=== PATIENT | male | born 1970 ===

== ENCOUNTER 2021-03-08 17:25 | Emergency (ER) | payer OTHER, SELFPAY ==
[2021-03-08 17:36] VITALS: BP 106/66; PULSE 82; RESP 16; TEMP 37.1; O2SAT 100; BMI 34.2
--- NOTE | 2021-03-08 17:55 | ED.GENADULT ---
HPI - General Adult General Chief complaint: Skin/Abscess/Foreign Body Stated complaint: rash Time Seen by Provider: 03/08/21 17:46 Source: patient Mode of arrival: ambulatory Limitations: no limitations History of Present Illness HPI narrative: 50-year-old male who presents emergency department for evaluation of possible poison torie. 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 He states that 2 days prior developed a rash on his hands, arms, face lower back and buttocks. He states that the rash is very pruritic. He denied associated symptoms such as fever, chills, chest pain, shortness of breath, dyspnea on exertion. He states he has had poison torie in the past and this feels similar to his past episodes of poison torie. Related Data Allergies Allergy/AdvReac Type Severity Reaction Status Date / Time No Known Allergies Allergy Verified 03/08/21 17:39 Review of Systems Review of Systems: Yes all other systems are reviewed and are negative PMFSH Past Medical History PMFSH Narrative: The patient smokes cigarettes occasionally, he denies alcohol use, he uses intranasal heroin. He states that he snorted 1 bag of heroin yesterday. He does have intranasal Narcan to use at home and he does not want to talk to our health and wellness coach at this time. Medical History (Updated 03/08/21 @ 18:04 by Ubaldo Benton MD) Asthma Social History Social History Smoked in Last 30 Days: No Use of substances other than those prescribed or required for medical reasons: No Advance Directives: No Advance Directives Information Provided: Yes Physical Exam Vital Signs: Vital Signs: Last Vital Signs Temp 98.7 F 03/08/21 17:36 Pulse 82 03/08/21 17:36 Resp 16 03/08/21 17:36 BP 106/66 03/08/21 17:36 Pulse Ox 100 03/08/21 17:36 Body Mass Index 34.2 Const: General: cooperative Orientation/consciousness: oriented to person and oriented to place Limitations: no limitations HENMT: Head: Yes normal to inspection, Yes normocephalic and Yes atraumatic Ears: external ears normal General nose exam: Normal external nose present Face and sinus: Yes normal facial exam Mouth: Normal oral and palatal mucosa present Throat: Yes posterior oropharynx normal Eyes: Periorbital: periorbital findings normal Eyelids: Yes eyelids normal Conjunctivae: conjunctivae normal Sclerae: sclerae normal Corneas: corneas normal Pupils: Equal, round and reactive pupils present Direct Ophthalmoscopy: normal light reflex Neck: Neck: Yes full ROM, Yes no lymphadenopathy, Yes trachea midline and Yes supple Chest: Chest palpation & inspection: normal inspection of the chest and normal palpation of entire chest wall Resp: Effort & Inspection: normal respiratory effort and able to speak in complete sentences Auscultation: clear to auscultation bilaterally Cardio: Rate: regular rate Rhythm: regular rhythm Heart sounds: S1 normal heart sound present, S2 normal heart sound present and no murmurs GI: Inspection: Yes normal to inspection Palpation (GI): Rigid due to palpation : General: Yes no CVA tenderness Back/Spine/Pelvis: Back: no CVA tenderness Skin: Other: Patient has multiple erythematous lesion with slight yellowish packs a day on his arm, hands, chest, face, lower back Neuro: General: oriented to person and oriented to place Cranial nerves: Yes Equal, round and reactive pupils present Cognition (Neuro): normal cognition Extrem: General: Yes full ROM Psych: Appearance: well kempt Mental Status: mental status grossly normal Speech and movement: Normal speech and movement present Affect: normal affect Attitude: cooperative Thought process: Normal thought process present Thought content: Normal thought content present Course Course Course Narrative: 50-year-old male who presents emergency department for evaluation of possible poison torie involving his arms, chest, face and back. The patient's physical findings are consistent with a contact dermatitis/poison torie. The patient was given prednisone 60 mg orally. He was started on prednisone 60 mg once a day for 10 days. He was given verbal and printed instructions on poison torie. The patient did not present for narcotic use disorder however he did admit to using intranasal heroin. I did discuss the safe use of narcotics with the patient, the patient was instructed to make sure that when he uses narcotics there is a sober person with him that has intranasal Narcan that can administer it to him. States that he does have a dose of intranasal Narcan at home and does not need 1 from us at this time. I did offer counseling from our health and wellness coach service however the patient does not want narcotic counseling at this time. He states he is not interested in getting to a detox or maintenance program. Discharge Plan Discharge Clinical Impression: Allergic dermatitis due to poison torie Patient Disposition: Home, Self-Care Instructions: Poison Torie (ED) Additional Instructions: Your rash is consistent with poison torie. Take prednisone 20 mg pills, 3 pills once a day for 7-10 days. Follow-up with your doctor in 2 days. Please return to the emergency department if your symptoms get worse or if you develop any symptoms that are concerning to you.
[2021-03-08] MEDS: predniSONE 20 MG TABLET 60 MG PO (18:17)
== END 2021-03-08 18:21 | disposition home or self-care (01) ==
PROVIDERS: Emergency Provider Emergency Medicine Emergency Medical Services; PCP Nurse Practitioner Family
DX: L23.7 Allergic contact dermatitis due to plants, except food (principal); F17.210 Nicotine dependence, cigarettes, uncomplicated; F15.90 Other stimulant use, unspecified, uncomplicated
CPT/HCPCS: 99283; 99284

== ENCOUNTER 2021-07-22 07:34 | Outpatient (REF) | payer OTHER, SELFPAY ==
[2021-07-22 08:11] LABS: COVID-19 Test Positive (Negative)
== END 2021-07-22 07:35 | disposition home or self-care (01) ==
LOC: HO.LAB 07:34
PROVIDERS: Visit Provider Internal Medicine
DX: Z20.822 Contact with and (suspected) exposure to COVID-19 (principal)
CPT/HCPCS: 36415; 87635; C9803

== ENCOUNTER 2021-08-18 08:03 | Outpatient (REF) | payer OTHER, SELFPAY | END 2021-08-18 08:04 | disposition home or self-care (01) | LOC: HO.LAB 08:03 | PROVIDERS: Visit Provider Internal Medicine | DX: Z20.822 Contact with and (suspected) exposure to COVID-19 (principal) | CPT/HCPCS: U0003; U0005 ==

== ENCOUNTER 2023-12-15 15:40 | Emergency (ER) | payer OTHER, SELFPAY ==
--- NOTE | ~2023-12-15 | XR_ITS ---
EXAMINATION: XR CHEST CLINICAL INFORMATION: Cough. COMPARISON: None available. TECHNIQUE: Frontal view of the chest was obtained. FINDINGS: No significant abnormality is noted involving the heart, lungs, mediastinum, bony thorax or soft tissues. XR/XR chest 1V IMPRESSION: Unremarkable chest examination.
--- NOTE | 2023-12-15 15:41 | ECG_ITS ---
Test Reason : CP Blood Pressure : / mmHG Vent. Rate : 095 BPM Atrial Rate : 095 BPM P-R Int : 150 ms QRS Dur : 086 ms QT Int : 368 ms P-R-T Axes : 065 061 049 degrees QTc Int : 462 ms Normal sinus rhythm Normal ECG When compared with ECG of 16-AUG-2018 06:50, Nonspecific T wave abnormality no longer evident in Inferior leads Referred By: Generic ED Physician Electronically Signed By:AUSTIN LAZAR MD
[2023-12-15 15:43] VITALS: BP 130/77; PULSE 87; RESP 16; TEMP 36.1; O2SAT 98; BMI 33.9
--- NOTE | 2023-12-15 15:51 | ED_ITS ---
HPI - Chest Pain General Chief Complaint: Chest Pain Stated Complaint: Chest pain, 'bad cold' History of Present Illness HPI narrative: Left without completion of treatment Related Data Previous Rx's Medication Instructions Recorded prednisone 20 mg tablet 60 mg (3 x 20 mg) PO DAILY 7 days 03/09/21 #21 tabs Allergies Allergy/AdvReac Type Severity Reaction Status Date / Time No Known Allergies Allergy Verified 03/08/21 17:39 [facility] Past Medical History Medical History (Updated 12/16/23 @ 13:54 by EWELINA Pelletier) Asthma Social History Social History Advance Directives: No Advance Directives Information Provided: No Physical Exam 2 Vital Signs: Vital Signs: Last Vital Signs Temp 97 F 12/15/23 15:43 Pulse 75 12/15/23 16:15 Resp 99 H 12/15/23 16:15 BP 130/77 12/15/23 15:43 Pulse Ox 98 12/15/23 15:43 O2 Del Method Room Air 12/15/23 15:43 BMI result Body Mass Index 33.9 Course Course Course Narrative: RME: 53 yold male presents to the ED for asthma exaceration. patient states coughing, chest pain when cough, and wheezing. Swab, chest xray ordered, EKG and labs ordered Medications Administered Discontinued Medications Generic Name Dose Route Start Last Admin Trade Name Freq PRN Reason Stop Dose Admin Albuterol Sulfate 4 puff 12/15/23 16:10 12/15/23 16:13 Albuterol Sulfate 90 Mcg 8 Gm Inhaler INHALE 12/15/23 16:11 4 puff ONCE ONE Administration Medical Decision Making Lab Data 12/15/23 16:06 12/15/23 16:06 Labs: Lab Results 12/15/23 Range/Units 16:06 WBC 9.0 (4.8-10.8) X10*3/uL RBC 5.29 (4.60-5.80) X10*6/uL Hgb 14.2 (14.0-18.0) g/dl Hct 42.8 (42.0-52.0) % MCV 80.9 (80.0-98.0) fL MCH 26.8 L (27.0-33.0) pg MCHC 33.2 (31.0-36.0) g/dl RDW 12.8 (11.0-16.0) % Plt Count 208 (160-400) X10*3/uL MPV 10.6 (9.4-12.4) fL Immature Gran % (Auto) 0.9 H (0.0-0.4) % Neut % (Auto) 50.0 (45-73) % Lymph % (Auto) 33.0 (20-40) % Saunders % (Auto) 6.2 (2-11) % Eos % (Auto) 9.2 H (0-4) % Baso % (Auto) 0.7 (0-2) % Lymph # (Auto) 3.0 (1.2-4.9) X10*3/uL Saunders # (Auto) 0.6 (0.1-1.2) X10*3/uL Eos # (Auto) 0.8 H (0.0-0.4) X10*3/uL Baso # (Auto) 0.1 (0.0-0.2) X10*3/uL Abs Immat Gran (auto) 0.08 H (0.00-0.03) X10*3/uL Absolute Neuts (auto) 4.5 (2.0-8.3) x10*3/uL Absolute Nucleated RBC 0.000 (0.0-0.012) X10*3/uL Nucleated RBC % (auto) 0.0 (0.0-0.2) /100WBC Sodium 138 (135-145) mmol/L Potassium 3.9 (3.3-5.1) mmol/L Chloride 104 (96-108) mmol/L Carbon Dioxide 24 (22-29) mmol/L Anion Gap 14 (12-20) BUN 15 (9-16) mg/dL Creatinine 0.82 (0.5-1.4) mg/dL Estim Creat Clear Calc 111.2 Estimated GFR > 60 Random Glucose 105 (60-115) mg/dL Calcium 9.6 (8.4-10.2) mg/dL Troponin I High Sens < 2.7 (<3.5-35.0) ng/L B-Natriuretic Peptide < 10 (<100) pg/mL COVID-19 (JUWAN) Negative (Negative) COVID-19 Clin Com See Note Influenza Type A (NIKI) TNP Influenza Type B (NIIK) TNP Influenza A & B Note See Note Discharge Plan Discharge Clinical Impression: Chest pain Patient Disposition: Left W/O Completing Treatment Prescriptions: No Action prednisone 20 mg tablet 60 mg PO DAILY 7 Days Qty: 21 0RF Discharge Date/Time: 12/15/23 22:23
[2023-12-15 16:12] LABS: MANUAL DIFF FLAG NO
[2023-12-15] MEDS: Albuterol Sulfate 90 MCG 8 GM INHALER 4 PUFF INHALE (16:13)
[2023-12-15 16:15] VITALS: PULSE 75; RESP 99; O2SAT 18
[2023-12-15 16:19] LABS: Basophils Absolute Auto 0.1 X10*3/uL (0.0-0.2); Basophils Percent Auto 0.7 % (0-2); Eosinophils Absolute Auto 0.8 X10*3/uL (0.0-0.4); Eosinophils Percent Auto 9.2 % (0-4); Hematocrit 42.8 % (42.0-52.0); Hemoglobin 14.2 g/dl (14.0-18.0); Imm Gran Abs Auto 0.08 X10*3/uL (0.00-0.03); Imm Gran Pct Auto 0.9 % (0.0-0.4); Mean Corpuscular HGB Conc 33.2 g/dl (31.0-36.0); Mean Corpuscular Hemoglobin 26.8 pg (27.0-33.0); Mean Corpuscular Volume 80.9 fL (80.0-98.0); Mean Platelet Volume 10.6 fL (9.4-12.4); Monocytes Absolute Auto 0.6 X10*3/uL (0.1-1.2); Monocytes Percent Auto 6.2 % (2-11); Neutrophils Absolute Auto 4.5 x10*3/uL (2.0-8.3); Platelet Count 208 X10*3/uL (160-400); Red Blood Count 5.29 X10*6/uL (4.60-5.80); Red Cell Distribution Width 12.8 % (11.0-16.0)
[2023-12-15 16:28] LABS: Anion Gap 14 (12-20); Blood Urea Nitrogen 15 mg/dL (9-16); Calcium 9.6 mg/dL (8.4-10.2); Carbon Dioxide 24 mmol/L (22-29); Chloride 104 mmol/L (96-108); Creatinine Clr Calc Pharmacy 111.2; Estimated Glomerular Filt Rate > 60; Glucose Random 105 mg/dL (60-115); Potassium 3.9 mmol/L (3.3-5.1); Sodium 138 mmol/L (135-145)
[2023-12-15 16:32] LABS: COVID-19 Test Negative (Negative); IDNOW Serial# 6674DD1D
[2023-12-15 16:33] LABS: B Type Natriuretic Peptide < 10 pg/mL (<100)
[2023-12-15 16:37] LABS: Troponin-I High Sensitivity < 2.7 ng/L (<3.5-35.0)
[2023-12-15 16:46] LABS: IDNOW Serial# 55D5AD1C
--- NOTE | 2023-12-15 22:22 | PC.NURSE ---
pt called for reassessment x 2 and repeat troponin with no answer
== END 2023-12-15 22:23 | disposition left against medical advice (07) ==
PROVIDERS: Physician Assistant; Emergency Provider Emergency Medicine; PCP Nurse Practitioner Family
DX: R07.9 Chest pain, unspecified (principal); J45.901 Unspecified asthma with (acute) exacerbation; Z11.52 Encounter for screening for COVID-19
CPT/HCPCS: 36415; 71045; 80048; 83880; 84484; 85025; 87635; 93005; 94640; 99284

== ENCOUNTER → 2023-12-15 15:41 | Outpatient (BNV) | payer OTHER, SELFPAY | PROVIDERS: Emergency Provider Emergency Medicine; PCP Nurse Practitioner Family; Visit Provider Internal Medicine Cardiovascular Disease | DX: R07.9 Chest pain, unspecified (principal) | CPT/HCPCS: 93010 ==

== ENCOUNTER 2024-05-26 11:28 | Emergency (ER) | payer OTHER, SELFPAY ==
--- NOTE | ~2024-05-26 | XR_ITS ---
EXAMINATION: XR FINGER, LEFT CLINICAL INFORMATION: Third digit laceration/injury. COMPARISON: None available. TECHNIQUE: Three views of the left long finger. FINDINGS: No acute fracture or subluxation. No unexpected radiopaque foreign bodies. No significant soft tissue abnormality. XR/XR finger LT min 2V IMPRESSION: 1. No acute fracture or malalignment. 2. No unexpected radiopaque foreign bodies.
[2024-05-26 11:52] VITALS: BP 119/70; PULSE 72; RESP 20; TEMP 36.6; O2SAT 98; BMI 34.9
--- NOTE | 2024-05-26 11:52 | ED.UPPEXIN ---
HPI - Extremity Injury (Upper) General Chief Complaint: Wound/Laceration Stated Complaint: Finger Lac Time Seen by Provider: 05/26/24 11:56 Source: patient Mode of arrival: ambulatory Limitations: no limitations History of Present Illness HPI narrative: Patient is a 53 year old male who presents emergency department for evaluation laceration to the left 3rd digit, distal tip along the radial aspect. Reports he was using a streets and buildings decorator in his garden, 1 of the branches broke loose in the tremor came swinging down striking the tip of his finger. He sustained a laceration, reports pain, and inability to flex the finger due to pain. It is held in extension. He reports his last tetanus vaccination was approximately 10-12 years ago Related Data Previous Rx's ?Medication ?Instructions ?Recorded prednisone 20 mg tablet 60 mg (3 x 20 mg) PO DAILY 7 days 03/09/21 #21 tabs Allergies Allergy/AdvReac Type Severity Reaction Status Date / Time No Known Allergies Allergy Verified 05/26/24 11:54 Review of Systems Review of Systems: Yes all other systems are reviewed and are negative [facility] Past Medical History Attestation statement: The following information was validated with the patient. Source: old records reviewed Medical History Asthma Social History Social History Advance Directives: No Advance Directives Information Provided: Yes Do you have a plan to hurt others: No Plan Physical Exam Vital Signs: Vital Signs: Last Vital Signs Temp 97.8 F 05/26/24 13:24 Pulse 72 05/26/24 13:24 Resp 20 05/26/24 13:24 BP 119/70 05/26/24 13:24 Pulse Ox 98 05/26/24 13:24 O2 Del Method Room Air 05/26/24 13:24 BMI result Body Mass Index 34.9 Appearance: Alert.?Oriented to person, place and time. No acute distress.?Normal affect. Neck: Normal inspection.? Neck supple.?? CVS: Heart sounds normal. Normal heart rate and rhythm.? Pulses normal.?? Respiratory: No respiratory distress.? Lung sounds clear to auscultation bilaterally?? Skin: Skin warm and dry.? Normal skin color.? 0.5cm linear laceration to distal tip of left 3rd digit along the radial aspect. No active bleeding..?? Extremities: No obvious deformity to the left 3rd digit, finger held in extension, reports inability to flex due to pain Neuro: Moves all extremities spontaneously. Sensation intact bilaterally. Ambulates with normal steady gait. Course Course Course Narrative: This is an RME performed by Danisha Granado CNP: Additional HPI, ROS, PE not included below will be deferred to primary provider. Patient is a 53-year-old male who presents emergency department for evaluation of accidental laceration to the left 3rd digit distal tip from a streets and buildings decorator. Reports last tetanus vaccination was 10-12 years ago. Denies use of anticoagulants Medical Decision Making Medical Decision Making MDM Narrative: Patient is a 53 old male who presents to the emergency department for evaluation of accidental laceration to the distal tip of the left 3rd digit as per HPI. On examination laceration is superficial, not amenable to repair with suture. Irrigated extensively with saline and Betadine. Tdap was updated. Due to mechanism of injury and pain, XR was obtained to exclude fracture vs. Pain secondary to contusion. Occurs without fracture, ice was applied to the area, increased range of motion flexion. Stable for discharge home Differential Diagnosis Differential Diagnoses: The differential diagnosis associated with the presentation includes (See narrative above) Independent Interpretation I performed an independent interpretation of an: Plain X-Ray (No acute fracture) Radiology Impression Discussion of test interpretation with radiology: I have reviewed the radiologist's reading. Radiologist Impression: XR/XR finger LT min 2V IMPRESSION: 1. No acute fracture or malalignment. 2. No unexpected radiopaque foreign bodies. Prescription Management I considered prescription management with: Pain Medication (Acetaminophen/ibuprofen) Discharge Plan Discharge Clinical Impression: Laceration of finger of left hand Patient Disposition: Home, Self-Care Instructions: Finger Laceration (ED) Additional Instructions: X-ray does not show any evidence of fracture or foreign body. Prescriptions: No Action prednisone 20 mg tablet 60 mg PO DAILY 7 Days Qty: 21 0RF Referrals: Physician,Unknown J [Primary Care Provider] - Interventions: ED Discharge Assessment Last Done: 05/26/24 13:24 Print Language: Setswana
[2024-05-26 13:24] VITALS: BP 119/70; PULSE 72; RESP 20; TEMP 36.6; O2SAT 98
[2024-05-26] MEDS: Diphth,Pertus(ACell),Tet Adult 0.5 ML SYRINGE IM (13:30)
--- NOTE | 2024-05-26 13:33 | PC.NURSE ---
pt medicated per provider order.
== END 2024-05-26 13:33 | disposition home or self-care (01) ==
PROVIDERS: Emergency Provider Emergency Medicine
DX: S61.213A Laceration without foreign body of left middle finger without damage to nail, initial encounter (principal); W27.1XXA Contact with garden tool, initial encounter; Y93.H2 Activity, gardening and landscaping; Y92.017 Garden or yard in single-family (private) house as the place of occurrence of the external cause; Y99.9 Unspecified external cause status
CPT/HCPCS: 73140; 90471; 90715; 99282; 99284

== ENCOUNTER 2024-07-11 13:49 | Emergency (ER) | payer OTHER, SELFPAY ==
--- NOTE | ~2024-07-11 | XR_ITS ---
EXAMINATION: XR FINGER, LEFT CLINICAL INFORMATION: Laceration, assess for fracture COMPARISON: None available. TECHNIQUE: Single view hand with 2 additional views of the left index finger. FINDINGS: The bones and soft tissues are unremarkable aside from some degenerative changes at the first CMC joint as well as at the radiocarpal joint. No fracture or foreign body. Alignment is anatomic. XR/XR finger LT min 2V IMPRESSION: No evidence of an acute injury. Degenerative changes as described above. Electronically signed by: Sudarshan Hill MD 07/11/2024 03:57 PM EDT
[2024-07-11 13:54] VITALS: BP 143/82; PULSE 100; RESP 18; TEMP 36.4; O2SAT 98; BMI 33.5
--- NOTE | 2024-07-11 14:12 | ED_ITS ---
HPI - Wound/Laceration General Chief Complaint: Wound/Laceration Stated Complaint: Finger lac Time Seen by Provider: 07/11/24 14:08 Source: patient Mode of arrival: ambulatory Limitations: no limitations History of Present Illness ED Provider: Carson Gordillo PA-C HPI narrative: 53-year-old male presents the ER for evaluation of a painful, infected wound to his left index finger sustained 3 days ago with hedge trimmers. Patient states he did not seek medical attention at the time. He has had the wound covered in a dressing with worsening pain. He states the wound started to have developed a foul smell yesterday. There is no drainage from it or bleeding. He is not diabetic. His tetanus shot is up-to-date. Onset (ago): day(s) (3) Extremity Location: left: hand (Left index finger) Place: home Patient tetanus UTD: Yes Associated symptoms: pain Treatments prior to arrival: bandage Related Data Previous Rx's ?Medication ?Instructions ?Recorded prednisone 20 mg tablet 60 mg (3 x 20 mg) PO DAILY 7 days 03/09/21 #21 tabs cephalexin 500 mg capsule 500 mg PO Q6H 7 days #28 caps 07/11/24 doxycycline hyclate 100 mg tablet 100 mg PO BID #14 tabs 07/11/24 hydrocortisone 2.5 % topical cream 1 appl topical TID PRN itching #30 07/11/24 grams oxycodone 5 mg tablet 5 mg PO Q8H PRN severe pain (scale 07/11/24 score 7-10) #5 tabs Allergies Allergy/AdvReac Type Severity Reaction Status Date / Time No Known Allergies Allergy Verified 07/11/24 13:56 Review of Systems 2 Review of Systems: Yes all other systems are reviewed and are negative [facility] Past Medical History Medical History Asthma Social History Social History Advance Directives: No Do you have a plan to hurt others: No Plan Physical Exam 2 Vital Signs: Vital Signs: Last Vital Signs Temp 0 F L 07/11/24 16:17 Pulse 70 07/11/24 16:17 Resp 16 07/11/24 16:17 BP 109/72 07/11/24 16:17 Pulse Ox 96 07/11/24 16:17 O2 Del Method Room Air 07/11/24 16:17 BMI result Body Mass Index 33.5 Appearance: Alert. Oriented X3. No acute distress. HEENT: normal inspection CVS: Normal heart rate and rhythm. Pulses normal. Respiratory: No respiratory distress. Skin: Skin warm and dry. Normal skin color. Normal skin turgor. Scattered raised, erythematous papules on the bilateral forearms, abdominal wall and lower extremities consistent with poison yoana dermatitis Extremities: palmar aspect of the left index finger with an irregularly shaped laceration, well epilethialized, white macerated tissue with foul smell. no fluctuance. NV intact. pain w/ flexion at DIP Neuro: Oriented X 3. No motor deficit. No sensory deficit. Medications Administered Discontinued Medications Generic Name Dose Route Start Last Admin Trade Name Freq PRN Reason Stop Dose Admin Acetaminophen 975 mg 07/11/24 14:28 07/11/24 14:41 Acetaminophen 325 Mg Tablet PO 07/11/24 14:29 975 mg ONCE ONE Administration Cephalexin HCl 500 mg 07/11/24 14:28 07/11/24 14:41 Cephalexin 500 Mg Capsule PO 07/11/24 14:29 500 mg ONCE ONE Administration Doxycycline Monohydrate 100 mg 07/11/24 14:28 07/11/24 14:41 Doxycycline Monohydrate 100 Mg Capsule PO 07/11/24 14:29 100 mg ONCE ONE Administration Oxycodone HCl 5 mg 07/11/24 14:28 07/11/24 14:41 Oxycodone Hcl Immed Release 5 Mg Tablet PO 07/11/24 14:29 5 mg ONCE ONE Administration Medical Decision Making Medical Decision Making [facility] Narrative: 53-year-old male presents to the ER for evaluation of a painful, foul-smelling, left index finger laceration from a trimmer sorter sustained 3 days ago. Did not seek medical attention at the time of the injury. Wound has been wrapped and causing more pain. On examination today there appears to be infection. X-ray was done to ensure no bony involvement, this was negative. Will start on double coverage oral antibiotics with Keflex and doxycycline along with pain control. Patient was given strict return precautions. Stable for discharge home, encouraged outpatient follow-up. Differential Diagnosis Differential Diagnoses: The differential diagnosis associated with the presentation includes Tenosynovitis, cellulitis, wound infection, abscess Admission/Observation Consideration of admission/observation: Escalation of care including admission/observation considered Independent Interpretation I performed an independent interpretation of an: Plain X-Ray Interpretation: No acute fracture of the finger Radiology Impression Discussion of test interpretation with radiology: I have reviewed the radiologist's reading. Radiologist Impression: EXAMINATION: XR FINGER, LEFT CLINICAL INFORMATION: Laceration, assess for fracture COMPARISON: None available. TECHNIQUE: Single view hand with 2 additional views of the left index finger. FINDINGS: The bones and soft tissues are unremarkable aside from some degenerative changes at the first CMC joint as well as at the radiocarpal joint. No fracture or foreign body. Alignment is anatomic. XR/XR finger LT min 2V IMPRESSION: No evidence of an acute injury. Degenerative changes as described above. External Record Review External record reviewed: Outpatient record, Prior outpatient labs and Prior outpatient radiology Prescription Management I considered prescription management with: Pain Medication and Antibiotic Critical Care Time Critical Care Time Critical Care Time: No Discharge Plan Discharge Clinical Impression: Infected cut of finger, Poison yoana Patient Disposition: Home, Self-Care Instructions: Wound Infection (DC), Poison Yoana (ED) Additional Instructions: Allow your finger to dry out, the white skin means that is much too moist and it is hindering the healing, contributing to infection. Take the prescribed antibiotics as directed, complete the entire course and do not miss any doses Use the prescribed hydrocortisone cream on your poison yoana 3 times per day. Recommend Motrin and Tylenol around the clock, alternating for pain. Take the prescribed oxycodone as needed for severe pain only. Do not drive after taking this medication. Follow-up with your doctor this week If you develop new or worsening symptoms call 911 or come back to the ER for further evaluation. Prescriptions: New doxycycline hyclate 100 mg tablet 100 mg PO BID Qty: 14 0RF cephalexin 500 mg capsule 500 mg PO Q6H 7 Days Qty: 28 0RF hydrocortisone 2.5 % cream 1 appl topical TID PRN (Reason: itching) Qty: 30 0RF oxycodone 5 mg tablet 5 mg PO Q8H PRN (Reason: severe pain (scale score 7-10)) Qty: 5 0RF Rx Instructions: Partial Fill upon patient request. No Action prednisone 20 mg tablet 60 mg PO DAILY 7 Days Qty: 21 0RF Interventions: ED Discharge Assessment Last Done: 07/11/24 16:17 Discharge Date/Time: 07/11/24 16:18 Print Language: Amharic
[2024-07-11 14:21] VITALS: BP 109/72; PULSE 70; RESP 16; O2SAT 96
[2024-07-11] MEDS: Doxycycline Monohydrate 100 MG CAPSULE PO (14:41)
[2024-07-11] MEDS: Acetaminophen 325 MG TABLET 975 MG PO (14:41)
[2024-07-11] MEDS: cephALEXin 500 MG CAPSULE PO (14:41)
[2024-07-11] MEDS: oxyCODONE HCl Immed Release 5 MG TABLET PO (14:41)
[2024-07-11 16:17] VITALS: BP 109/72; PULSE 70; RESP 16; TEMP -17.7; TEMP 0; O2SAT 96
== END 2024-07-11 16:18 | disposition home or self-care (01) ==
PROVIDERS: Emergency Provider Emergency Medicine Emergency Medical Services
DX: L08.9 Local infection of the skin and subcutaneous tissue, unspecified (principal); L23.7 Allergic contact dermatitis due to plants, except food; M79.645 Pain in left finger(s)
CPT/HCPCS: 73140; 99283